=== PATIENT | male | born 1940 | race Two or more races ===

== ENCOUNTER 2022-10-13 09:51 | Emergency (ER) | payer OTHER ==
[~2022-10-13] VITALS: Ht 177.8 cm; Wt 72.6 kg
[2022-10-13] MEDS ORDERED: XARELTO20 M1 PO (10:11)
[2022-10-13] MEDS ORDERED: PROTONIX20 MG PO (10:12)
[2022-10-13] MEDS ORDERED: ATACAND16 MG PO (10:12)
[2022-10-13] MEDS ORDERED: PERCOCET 10-321 EACH (10:13)
[2022-10-13] MEDS ORDERED: LYRICA100 MG PO (10:13)
[2022-10-13] MEDS ORDERED: GLUMETZA500 MG (10:14)
[2022-10-13] MEDS ORDERED: TOPROL XL50 M1 (10:14)
[2022-10-13] MEDS ORDERED: FENTANYL (10:14)
== END 2022-10-13 14:17 | disposition home or self-care (01) ==
LOC: ER 09:51
DX: R07.89 Other chest pain (principal); I25.10 Atherosclerotic heart disease of native coronary artery without angina pectoris; I10 Essential (primary) hypertension; E11.9 Type 2 diabetes mellitus without complications; Z79.84 Long term (current) use of oral hypoglycemic drugs; Z91.018 Allergy to other foods; Z91.041 Radiographic dye allergy status